=== PATIENT | male | born 1995 | race Caucasian/White ===

== ENCOUNTER 2023-03-02 21:17 | Emergency (ER) | payer OTHER, MEDICAID ==
[~2023-03-02] VITALS: Ht 185.4 cm; Wt 83.9 kg
[2023-03-02 21:28] VITALS: BP_SYST 139
[2023-03-02] MEDS ORDERED: MORPHINE 4 MG INJ. 4 MG/ML VIAL IM ONE (22:30)
[2023-03-02] MEDS ORDERED: METH-634 PO (22:56)
[2023-03-02] MEDS ORDERED: IBUP-1969 PO (22:56)
[2023-03-02] MEDS ORDERED: TRAM50TA2 PO (22:56)
== END 2023-03-02 23:02 | disposition home or self-care (01) ==
LOC: SED 21:17
DX: M54.50 Low back pain, unspecified (principal); M79.604 Pain in right leg; Z79.899 Other long term (current) drug therapy
CPT/HCPCS: 99283; 96372; J2270